=== PATIENT | female | born 1940 | race Caucasian/White ===

== ENCOUNTER 2019-06-11 09:06 | Day surgery (SDC) | payer OTHER ==
[~2019-06-11] VITALS: Ht 160 cm; Wt 111.5 kg
[~2019-06-11 09:06] MED LIST: ASPI81CH PO; Benicar40 MG PO; Bumetanide2 MG PO; CRUTCH3 USE; FURO40; GABA300; HYDACE5 PO; LANS30EC PO; LISI20; LOSA50 PO; MELO7.5; MELO7.5 PO; OMEP40CA12 PO; POTCHL20ER PO; SPIR25 PO
--- NOTE | 2019-06-11 09:46 | NUR ---
PATIENT WAS ADMITTED TO DAY SURGERY PER APPOINTMENT, LUNGS SOUNDS WERE CLEAR, THE PATIENT STATES THATSHE HAS BEEN NPOSINCE YESTERDAY EVENING.
--- NOTE | 2019-06-11 10:26 | NUR ---
PATIENT VOIDED AT 1025, PRE SURGERY
--- NOTE | 2019-06-11 18:31 | NUR ---
SHIFT SUMMARY PT A&OX4, VSS, S/P L TKA, SURGICAL DRESSING/BELLA WRAP, TEDS/SCDS/POLAR JORGE L ON, ELEVATED IN CHAIR. PT EVAL'D: PT ABLE TO AMB TO [facility] AND CHAIR/BED W/FWW & GB. JAMISON PO, DENIES N&V. PAIN MANAGED PER EMAR. WILL REPORT TO ONCOMING NOC RN
--- NOTE | 2019-06-12 04:15 | NUR ---
SHIFT SUMMARY: PT POD #1 FOR LEFT TOTAL KNEE. BELLA WRAP AND POLAR PACK IN PLACE. PAIN MANAGED WITH SCHED TORADOL AND TYLENOL. GIVEN 10MG OXY THIS MORNING. 1 ASSIST TO BATHROOM W/FWW. JAMISON ACTIVITY WELL. VOIDING. DENIES N/V. JAMISON REG DIET. AT BEDSIDE AND IS SUPPORTIVE WITH CARE.
[2019-06-12 04:30] LABS: BASOPHILS ABSOLUTE AUTO 0.01 K/mm3 (0.00-0.23); BASOPHILS PERCENT AUTO 0 % (0-2); EOSINOPHILS PERCENT AUTO 0 % (0-6); Hematocrit 39.2 % (33.0-51.0); Hemoglobin 13.1 g/dL (11.5-16.0); IMMATURE GRAN ABSOLUTE AUTO 0.04 K/mm3 (0.00-0.10); IMMATURE GRAN PERCENT AUTO 0 % (0-1); LYMPHOCYTES ABSOLUTE AUTO 1.02 K/mm3 (0.84-5.20); LYMPHOCYTES PERCENT AUTO 11 % (21-46); MONOCYTES ABSOLUTE AUTO 0.77 K/mm3 (0.16-1.47); MONOCYTES PERCENT AUTO 8 % (4-13); Mean Corpuscular HGB Conc 33.4 g/dL (31.5-36.5); Mean Corpuscular Volume 96 fL (80-100); Mean Platelet Volume 10.7 fL (9.1-12.4); NEUTROPHILS ABSOLUTE AUTO 7.86 K/mm3 (1.96-9.15); NEUTROPHILS PERCENT AUTO 81 % (41-73); Platelet Count 157 K/mm3 (150-400); RDW Coefficient Variation 12.3 % (11.7-14.2); RDW Standard Deviation 42.7 fL (35.1-46.3)
[2019-06-12 04:45] LABS: Bun/Creatinine Ratio 18.9 (12.0-20.0); Calcium, Blood 8.8 mg/dL (8.5-10.1); Creatinine, Blood 1.27 mg/dL (0.40-1.00); Potassium, Blood 4.2 mmol/L (3.5-5.5)
[2019-06-12] MEDS ORDERED: ENOX40I INJ (09:45)
[2019-06-12] MEDS ORDERED: OXYC5 PO (09:45)
[2019-06-12] MEDS ORDERED: PROM25 PO (09:46)
--- NOTE | 2019-06-12 13:06 | NUR ---
DISCHARGE SUMMARY: PT A&O X 4. VSS. LEFT FLOOR VIA WHEELCHAIR WITH RN, TO GO HOME WITH , WITH ALL PERSONAL POSSESSIONS INCLUDING DISCHARGE PACKET/ PT FILLED PRESCRIPTIONS PRIOR TO ADMIT. Discharge instructions reviewed with patient. Patient verbalizes understanding. Copy given to patient to take home. IV D/C'D.
== END 2019-06-12 12:03 | disposition home or self-care (01) ==
LOC: ORSCMMR 09:06 → ORD 10:30 → ORSCMMR 10:30 → SURS 14:58 → ORSCMMR 06-12 12:03
PROVIDERS: Orthopaedic Surgery
PROC: 8E0YXBZ Computer Assisted Procedure of Lower Extremity (ICD-10-PCS; principal; 2019-06-11 10:30)
PROC: 0SRD0J9 Replacement of Left Knee Joint with Synthetic Substitute, Cemented, Open Approach (ICD-10-PCS; principal; 2019-06-11 10:30)
DX: M17.12 Unilateral primary osteoarthritis, left knee (principal); E66.01 Morbid (severe) obesity due to excess calories; Z68.41 Body mass index [BMI] 40.0-44.9, adult; G47.33 Obstructive sleep apnea (adult) (pediatric); Z79.899 Other long term (current) drug therapy
CPT/HCPCS: 36415; 73560-LT; 80048; 83735; 85025; 88300; 97110; 97116; 97161; C1713; C1776; J0171; J0735; J1100; J1650; J1885; J2250; J2370; J2405; J2704; J2765; J2795; J3010; J3370; J7120

== ENCOUNTER 2024-03-28 22:45 | Emergency (ER) | payer OTHER ==
[~2024-03-28] VITALS: Ht 160 cm; Wt 102.1 kg
[~2024-03-28 22:45] MED LIST changes: +ENOX40I INJ; +OXYC5 PO; +PROM25 PO
[2024-03-28 23:30] LABS: BASOPHILS ABSOLUTE AUTO 0.04 K/mm3 (0.00-0.23); BASOPHILS PERCENT AUTO 1 % (0-2); EOSINOPHILS ABSOLUTE AUTO 0.21 K/mm3 (0.00-0.68); EOSINOPHILS PERCENT AUTO 3 % (0-6); Hematocrit 43.5 % (33.0-51.0); Hemoglobin 14.9 g/dL (11.5-16.0); IMMATURE GRAN ABSOLUTE AUTO 0.04 K/mm3 (0.00-0.10); IMMATURE GRAN PERCENT AUTO 1 % (0-1); LYMPHOCYTES ABSOLUTE AUTO 3.12 K/mm3 (0.84-5.20); LYMPHOCYTES PERCENT AUTO 46 % (21-46); MONOCYTES ABSOLUTE AUTO 0.63 K/mm3 (0.16-1.47); MONOCYTES PERCENT AUTO 9 % (4-13); Mean Corpuscular HGB Conc 34.3 g/dL (31.5-36.5); Mean Corpuscular Volume 93 fL (80-100); NEUTROPHILS ABSOLUTE AUTO 2.81 K/mm3 (1.96-9.15); NEUTROPHILS PERCENT AUTO 41 % (41-73); Platelet Count 167 K/mm3 (150-400); RDW Standard Deviation 44.7 fL (35.1-46.3); Red Blood Cell Count 4.66 M/mm3 (3.80-5.20); White Blood Cell Count 6.85 K/mm3 (4.00-11.30)
[2024-03-28 23:51] LABS: Albumin, Blood 3.8 g/dL (3.4-5.0); Albumin/Globulin Ratio 1.2 (0.8-1.8); Bilirubin, Total 1.3 mg/dL (0.1-1.0); Calcium, Blood 8.8 mg/dL (8.5-10.1); Creatinine, Blood 1.22 mg/dL (0.40-1.00); Globulin, Blood 3.3 g/dL (2.2-4.0); Potassium, Blood 3.2 mmol/L (3.5-5.5); Total Protein, Blood 7.1 g/dL (6.4-8.2)
[2024-03-29] MEDS ORDERED: Lidocaine 2% Viscous Soln 15 ML UDC PO ONE (01:05)
[2024-03-29] MEDS ORDERED: Mag Hydrox/AL Hydrox/Simeth 30 ML UDC PO ONE (01:05)
[2024-03-29] MEDS ORDERED: Pantoprazole Sodium 40 MG Injection IV ONE (01:15)
[2024-03-29] MEDS ORDERED: OMEPRAZOLE MAGN20 MG PO (01:18)
[2024-03-29 01:34] VITALS: BP 136/75
== END 2024-03-29 01:35 | disposition home or self-care (01) ==
LOC: ER 22:45
PROVIDERS: Student in an Organized Health Care Education/Training Program
DX: R07.89 Other chest pain (principal); M19.90 Unspecified osteoarthritis, unspecified site; E78.00 Pure hypercholesterolemia, unspecified; I10 Essential (primary) hypertension; Z79.899 Other long term (current) drug therapy; Z88.0 Allergy status to penicillin; Z91.041 Radiographic dye allergy status; Z87.19 Personal history of other diseases of the digestive system
CPT/HCPCS: 71046; 80053; 83880; 84484; 85025; 93005; 93010; 96374; 99285-25; A9270; J2470

== ENCOUNTER 2025-06-04 08:40 | Day surgery (SDC) | payer OTHER ==
[2025-05-14 14:53] VITALS: BP 164/93
[~2025-06-04] VITALS: Ht 160 cm; Wt 111.9 kg
[2025-06-04] VITALS (21 sets, daily range): BP systolic 123–159; BP diastolic 57–94
[~2025-06-04 08:40] MED LIST changes: +CeFAZolin Sodium 2,000 MG in NS 100 ML IV SCH; +Chlorhexidine Mouth Care 15 ML UDC MT SCH; +FentaNYL Citrate 50 MCG/ML 2 ML Injection ONE; +LISI5 PO; +Midazolam HCl 1MG / ML 2ML Vial ONE; +OMEPRAZOLE MAGN20 MG PO; +Ropivacaine 0.5% HCl/Pf 123.125 MG,EPINEPHrine HCL 0.25 MG,Ketorolac Tromethamine 15 MG... INFIL SCH; +Tranexamic Acid 100 ML IV SCH
[2025-06-04] MEDS ORDERED: ATOR20 PO (09:07)
--- NOTE | 2025-06-04 09:29 | NUR ---
AMBULATORY INTO [facility]. PT REPORTS 4/10 RIGHT KNEE PAIN. PT REPORTS FEELING ANXIOUS. HISTORY AND ALLERGIES REVIEWED. LUNGS CLEAR. SATS>95% NPO STATUS CONFIRMED.PT GLASSES AND DENTURES TAKEN TO PACU. OTHER BELONGINGS IN BAG BELOW [facility].
--- NOTE | 2025-06-04 10:03 | NUR ---
PT KEPT UPPER AND LOWER DENTURES IN PER ANESTHESIA.DENTURE CUP WITH EFFERDENT SENT TO OR.
[2025-06-04] MEDS ORDERED: Midazolam HCl 1MG / ML 2ML Vial ONE (10:27)
[2025-06-04] MEDS ORDERED: HYDROmorphone HCl/Pf 1MG SYR ONE ×2 (10:58→12:30)
[2025-06-04] MEDS ORDERED: Ondansetron HCl 2 MG / ML 2ML Vial ONE (11:43)
[2025-06-04] MEDS ORDERED: Dexamethasone Sod Phos 10 MG/ML 1ML VIAL ONE (11:43)
[2025-06-04] MEDS ORDERED: FentaNYL Citrate 50 MCG/ML 2 ML Injection IV PRN ×2 (11:45)
[2025-06-04] MEDS ORDERED: HYDROmorphone HCl/Pf 1MG SYR IV PRN ×3 (11:45→12:45)
[2025-06-04] MEDS ORDERED: Ondansetron HCl 2 MG / ML 2ML Vial IV PRN ×2 (11:55→12:40)
[2025-06-04] MEDS ORDERED: Ketorolac Tromethamine 30mg Vial ONE (12:29)
[2025-06-04] MEDS ORDERED: FentaNYL Citrate 50 MCG/ML 2 ML Injection ONE (12:30)
[2025-06-04] MEDS ORDERED: Magnesium Hydroxide Conc 10 ML UDC PO PRN (12:45)
[2025-06-04] MEDS ORDERED: Metoclopramide HCl 5MG / ML 2ML Vial IV PRN (12:50)
--- NOTE | 2025-06-04 13:48 | NUR ---
POST OP ARRIVAL TO FLOOR AT APPROX 1340 S/P R TKA. BELLA WRAP TO R KNEE IS CDI WITH POLAR PACK IN PLACE. PT HAS DECREASED SENSATION TO BLE R/T SPINAL, BUT ABLE TO WIGGLE HER TOES AND CAP REFILL <3 SECONDS. PT DENIES PAIN. POST OP VITALS IN PROGRESS AND STABLE. PT AWAKE AND EATING APPLESAUCE WITH NO N/V. AT BEDSIDE. ORIENTED TO CALL LIGHT AND TREATMENT PLAN.
[2025-06-04] MEDS ORDERED: Aspir 8181 MG PO (14:43)
--- NOTE | 2025-06-04 17:31 | NUR ---
SHIFT SUMMMARY PATIENT IS POD0 R TKA, BELLA WRAP IS C/D/I. UP WTIH 1 ASSIST TO BSC, VOIDING, TOLERATING PO INTAKE, MEDICATED FOR PAIN PER ORDERS.VSS, SITTING UP EATING DINNER DC ORDERS IN PLACE, PATIENT WANTS TO DC THIS EVENING, ALL INSTRUCTIONS READY IN PACKET.
[2025-06-04] MEDS ORDERED: Ketorolac Tromethamine 15mg Vial IV SCH (18:00)
[2025-06-04] MEDS ORDERED: CeFAZolin Sodium 2,000 MG in NS 100 ML IV SCH (18:30)
[2025-06-05 02:00] VITALS: BP 111/70
[2025-06-05 04:55] VITALS: BP 123/65
--- NOTE | 2025-06-05 05:22 | NUR ---
SHIFT SUMMARY NOC. PT POD 1 FOR RTKA. DRESSING UNDER BELLA WRAP IS C/D/I. PT NAUSEOUS INTERMITTENTLY T/O SHIFT. PT MEDICATED FOR NAUSEA WITH REPORTED RELIEF OF SX. PT MEDICATED FOR PAIN WITH ORAL OXYCODONE 5MG WITH IMPROVEMENT IN R KNEE PAIN. PT VOIDING URINE, NOT TOLERATING PO INTAKE WELL, NO VOMIT EPISODES THIS SHIFT. PT MAKES NEEDS KNOWN, CALL LIGHT IN REACH.
[2025-06-05 05:37] LABS: BASOPHILS ABSOLUTE AUTO 0.02 K/mm3 (0.00-0.23); BASOPHILS PERCENT AUTO 0 % (0-2); EOSINOPHILS ABSOLUTE AUTO 0.01 K/mm3 (0.00-0.68); EOSINOPHILS PERCENT AUTO 0 % (0-6); Hematocrit 36.7 % (33.0-51.0); Hemoglobin 12.0 g/dL (11.5-16.0); IMMATURE GRAN ABSOLUTE AUTO 0.03 K/mm3 (0.00-0.10); IMMATURE GRAN PERCENT AUTO 0 % (0-1); LYMPHOCYTES ABSOLUTE AUTO 1.86 K/mm3 (0.84-5.20); LYMPHOCYTES PERCENT AUTO 21 % (21-46); MONOCYTES ABSOLUTE AUTO 1.17 K/mm3 (0.16-1.47); MONOCYTES PERCENT AUTO 13 % (4-13); Mean Corpuscular HGB Conc 32.7 g/dL (31.5-36.5); Mean Corpuscular Volume 96 fL (80-100); NEUTROPHILS ABSOLUTE AUTO 5.94 K/mm3 (1.96-9.15); NEUTROPHILS PERCENT AUTO 66 % (41-73); NRBC ABSOLUTE 0.00 K/mm3 (0.00-0.02); NRBC Auto 0.0 /100 WBC (0.0-0.2); Platelet Count 190 K/mm3 (150-400); RDW Coefficient Variation 14.2 % (11.7-14.2); RDW Standard Deviation 49.7 fL (35.1-46.3)
[2025-06-05 06:01] LABS: Anion Gap 10.0 mmol/L (3-11); Blood Urea Nitrogen 18.0 mg/dL (8-24); CO2, Blood 25.0 mmol/L (21-32); Calcium, Blood 9.5 mg/dL (8.5-10.1); Chloride, Blood 104.0 mmol/L (98-108); Creatinine, Blood 1.11 mg/dL (0.40-1.00); Glucose, Blood 121.0 mg/dL (70-99); Magnesium, Blood 1.9 mg/dL (1.6-2.4); Potassium, Blood 3.8 mmol/L (3.5-5.5); Sodium, Blood 135.0 mmol/L (136-145)
[2025-06-05] MEDS ORDERED: ELIQUIS2.5 MG PO (07:26)
[2025-06-05 07:36] VITALS: BP 117/67
--- NOTE | 2025-06-05 10:22 | NUR ---
DISCHARGE: PT CLEARED BY THERAPY FOR DC. DC PACKET PRINTED AND PT INSTRUCTED. PT HAS APPOINTMENT SCHEDULED AND SCRIPTS ALREADY FILLED. HAS A FWW AT HOME. PT GIVEN EXTRA SUPPLIES FOR DRESSING CHANGED. PT LEFT UNIT VIA WHEELCHAIR WITH GEOVANI AT 1015
== END 2025-06-05 10:11 | disposition home or self-care (01) ==
LOC: ORSCMMR 08:40 → ORD 10:00 → ORSCMMR 10:00 → SURS 13:28 → ORSCMMR 06-05 10:11
PROVIDERS: Orthopaedic Surgery
PROC: 0SRC0JA Replacement of Right Knee Joint with Synthetic Substitute, Uncemented, Open Approach (ICD-10-PCS; principal; 2025-06-04 10:00)
DX: M17.11 Unilateral primary osteoarthritis, right knee (principal); Z96.652 Presence of left artificial knee joint; I10 Essential (primary) hypertension; E66.01 Morbid (severe) obesity due to excess calories; Z68.41 Body mass index [BMI] 40.0-44.9, adult; Z79.899 Other long term (current) drug therapy
CPT/HCPCS: 36415; 73560-RT; 80048; 83735; 85025; 97110; 97116; 97161; A9270; C1776; J0166; J0690; J0735; J1100; J1171; J1885; J2250; J2405; J2704; J2795; J3010; J7120